=== PATIENT | male | born 1950 | race Caucasian/White ===

== ENCOUNTER 2018-04-02 09:42 | Emergency (ER) | payer MEDICARE, OTHER ==
[2018-04-02] MEDS ORDERED: Ondansetron HCl/PF 4 MG/2 ML Vial ONE (09:58)
[2018-04-02] MEDS ORDERED: Ketorolac Tromethamine 30 MG/ML VIAL ONE ×2 (09:58→12:06)
[2018-04-02 10:18] LABS: #Basophils 0.1 thou/uL (0.0-0.2); #Eosinphils 0.3 thou/uL (0.0-0.7); #Monocytes 0.6 thou/uL (0.11-0.59); #Neutrophils 5.3 thou/uL (1.40-6.50); %Basophils 0.7 % (0.0-1.0); %Eosinophils 2.7 % (0.0-10.0); %Lymphocytes 32.3 % (21.0-51.0); %Monocytes 6.9 % (0.0-10.0); %Neutrophils 57.3 % (42.0-75.0); Hemoglobin 15.2 g/dL (14.0-18.0); Mean Corpuscular HGB CONC 34.6 g/dL (32.0-36.0); Mean Corpuscular Hemoglobin 31.4 pg (27.0-31.0); Mean Corpuscular Volume 90.8 fL (78.0-98.0); Mean Platelet Volume 6.5 fL (7.4-10.4); Platelet Count 227 thou/uL (130-400); Red Blood Cell (RBC) Count 4.84 mill/uL (4.70-6.10); White Blood Cell (WBC) Count 9.3 thou/uL (4.8-10.8)
[2018-04-02 11:02] LABS: ALT (SGPT) 37 U/L (8-55); AST (SGOT) 32 U/L (5-34); Albumin 4.2 g/dL (3.4-4.8); Alkaline Phosphatase 39 U/L (40-150); Anion Gap 18 mmol/L (10-20); BUN (Urea Nitrogen) 20 mg/dL (8.4-25.7); Bilirubin, Total 0.4 mg/dL (0.2-1.2); Calc. Creatinine Clearance 0 mL/min (70-130); Calcium 9.2 mg/dL (7.8-10.44); Carbon Dioxide 20 mmol/L (23-31); Chloride 107 mmol/L (98-107); Estimated GFR-MDRD 60; Globulin 3.5 g/dL (2.4-3.5); Glucose 236 mg/dL (80-115); Potassium 4.9 mmol/L (3.5-5.1); Protein, Total 7.7 g/dL (5.8-8.1); Sodium 140 mmol/L (136-145)
--- NOTE | 2018-04-02 11:29 | CT ---
CT ABDOMEN AND PELVIS NONCONTRAST: Date: 04/02/18 HISTORY: Left flank pain. FINDINGS: Left renal collecting system and ureter are mildly distended to a level of a 0.5 cm calculus within t he proximal left ureter. Ureter is decompressed beyond this point. Right renal collecting system and ureter are decompressed. A tiny calcification, 0.1 cm, is present within a nondilated tono at the low perior pole right kidney. Lack of contrast limits evaluation for other abnormalities. Calcified granulomata are consistent with healed granulomatous disease. Diverticula rise from the colon without adjacent inflammation. There i s an arterial calcification. Fusiform dilatation of the lower abdominal aorta measures up to 4.5 cm. IMPRESSION: 1. Partial obstruction at a 0.5 cm proximal left ureteral calculus. 2. Tiny nonobstructing right renal calculus. 3. Fusiform lower abdominal aortic aneurysm, 4.5 cm. POS: [facility]
[2018-04-02 11:47] LABS: Bilirubin Negative (Negative); Blood, Urine Large (Negative); Clarity CLEAR (Clear); Glucose, Urine (Dipstick) 500 mg/dL (Negative); Leukocyte Negative (Negative); Nitrite Negative (Negative); Protein, Urine (Dipstick) Negative (Neg-Trace); Specific Gravity, Urine 1.021 (1.002-1.036); Urobilinogen 0.2 mg/dL (0.2-1.0); pH, Urine 5.5 (5.0-9.0)
[2018-04-02 11:49] LABS: Bacteria/HPF None Seen HPF (None Seen); Hyaline Casts/LPF 0-3 HYALINE CAST LPF (0-3 Hyaline); RBC/HPF 21-50 HPF (0-3); Squamous Epithelial None Seen HPF (0-3); WBC/HPF 0-3 HPF (0-3)
== END 2018-04-02 15:01 | disposition home or self-care (01) ==
LOC: ERS 09:42
DX: N20.1 Calculus of ureter (principal); I25.10 Atherosclerotic heart disease of native coronary artery without angina pectoris; I10 Essential (primary) hypertension; E11.9 Type 2 diabetes mellitus without complications; E78.5 Hyperlipidemia, unspecified; Z87.442 Personal history of urinary calculi; Z79.899 Other long term (current) drug therapy; Z79.84 Long term (current) use of oral hypoglycemic drugs
CPT/HCPCS: 74176; 80053; 81003; 81015; 85025; 96374; 96375; 96376; J1885; J2270; J2405

== ENCOUNTER 2018-09-11 07:13 | Outpatient (CLI) | payer MEDICARE ==
--- NOTE | 2018-09-11 09:19 | CT ---
CT ABDOMEN AND PELVIS WITHOUT CONTRAST CT ANGIOGRAM ABDOMEN AND PELVIS WITH CONTRAST: Date: 09/11/18 HISTORY: Follow-up aneurysm. COMPARISON: CT abdomen and pelvis without contrast dated 04/02/18. FINDINGS: The lung bases are clear. No pericardial effusion. On the noncontrast portion of the examination, there are a few calcified granulomas of the spleen. Th ere is no nephroureterolithiasis or hydroureteronephrosis. No secondary evidence of a recently passed stone. The appendix is visualized and is normal. There is diffuse fatty atrophy of the pancreas. No retroperitoneal adenopathy. Adrenal glands are unremarkable. No abnormal enhancing renal mass. No urothelial abnormality. There are two foci of ectasia of the aorta. The first is just below the renal arteries, for which the aorta measures up to 3.1 cm, for a craniocaudad length of 3.0 cm. There is a saccular aneurysm of th e infrarenal abdominal aorta just above the bifurcation measuring up to 4.4 cm for a craniocaudad graeme gth of 3.5 cm, which has partial peripheral posterior thrombosis. The iliac arteries are patent. No a neurysmal dilatation. Only mild atherosclerotic plaque. There is a nonenhancing 7.0 mm hypodensity anterior cortex intrapolar left kidney, likely a cyst. Evidence of old injury of the right iliac wing. IMPRESSION: Similar examination of the infrarenal abdominal aortic aneurysm. No dissection. POS: [facility]
== END 2018-09-11 07:14 | disposition home or self-care (01) ==
LOC: CT 07:13
PROVIDERS: ATTEND Thoracic Surgery (Cardiothoracic Vascular Surgery)
DX: I71.4 Abdominal aortic aneurysm, without rupture (principal)
CPT/HCPCS: 74174; 82565

== ENCOUNTER 2018-10-08 06:46 | Outpatient (CLI) | payer MEDICARE ==
[2018-10-08 12:52] LABS: Mean Corpuscular HGB CONC 33.9 g/dL (32.0-36.0); Mean Corpuscular Hemoglobin 30.5 pg (27.0-31.0); Platelet Count 255 thou/uL (130-400); RBC Distribution Width 11.9 % (11.5-14.5); Red Blood Cell (RBC) Count 4.92 mill/uL (4.70-6.10); White Blood Cell (WBC) Count 8.9 thou/uL (4.8-10.8)
[2018-10-08 13:12] LABS: Anion Gap 17 mmol/L (10-20); BUN (Urea Nitrogen) 34 mg/dL (8.4-25.7); Calc. Creatinine Clearance 0 mL/min (70-130); Calcium 9.9 mg/dL (7.8-10.44); Carbon Dioxide 21 mmol/L (23-31); Chloride 104 mmol/L (98-107); Estimated GFR-MDRD 54; Glucose 107 mg/dL (80-115); Potassium 5.1 mmol/L (3.5-5.1); Sodium 137 mmol/L (136-145)
--- NOTE | 2018-10-11 20:32 | EKG ---
Test Reason : Blood Pressure : / mmHG Vent. Rate : 076 BPM Atrial Rate : 076 BPM P-R Int : 184 ms QRS Dur : 096 ms QT Int : 374 ms P-R-T Axes : 034 224 047 degrees QTc Int : 420 ms Normal sinus rhythm Right superior axis deviation Right ventricular hypertrophy Inferior infarct , age undetermined Abnormal ECG When compared with ECG of 22-AUG-2012 10:30, MI interval has decreased Questionable change in QRS axis Inferior infarct is now Present QT has shortened Confirmed by Flash OLSEN ([id number]) on 10/11/2018 8:32:12 PM Referred By: CHRIS Confirmed By:Flash OLSEN
== END 2018-10-08 06:47 | disposition home or self-care (01) ==
LOC: LABBT 06:46
PROVIDERS: ATTEND Thoracic Surgery (Cardiothoracic Vascular Surgery)
DX: Z01.818 Encounter for other preprocedural examination (principal); I71.4 Abdominal aortic aneurysm, without rupture
CPT/HCPCS: 80048; 85027; 86850; 86900; 86901; 93005; 93010

== ENCOUNTER 2018-10-08 11:30 | Inpatient (IN) | payer MEDICARE ==
[2018-10-10] MEDS ORDERED: Levofloxacin 500 mg/D5W 100 ml Premix Bag ONE (06:27)
[2018-10-10] MEDS ORDERED: Clindamycin/D5W 900 mg/50 ml Premix Bag ONE (06:27)
[2018-10-10] MEDS ORDERED: Protamine Sulfate 250 MG/25 ML VIAL ONE (06:43)
[2018-10-10] MEDS ORDERED: Heparin 10,000 UNITS/1 ML VIAL ONE (06:43)
[2018-10-10] MEDS ORDERED: Protamine Sulfate 50 MG/5 ML VIAL ONE (06:43)
[2018-10-10] MEDS ORDERED: Fentanyl 250 MCG/5 ML VIAL ONE (06:55)
[2018-10-10] MEDS ORDERED: Midazolam HCl 2 mg/2 ml Vial ONE (07:06)
[2018-10-10] MEDS ORDERED: Promethazine HCl 25 MG/ML VIAL IM PRN (09:14)
[2018-10-10] MEDS ORDERED: Ondansetron HCl/PF 4 MG/2 ML Vial IVP PRN (09:14)
[2018-10-10] MEDS ORDERED: Promethazine HCl 25 MG/ML VIAL SLOW IVP PRN (09:14)
[2018-10-10] MEDS ORDERED: HYDROcodone/Acetaminophen 5/325 mg Tablet PO PRN ×2 (13:10)
[2018-10-10] MEDS ORDERED: Nitroglycerin 50 MG/250 ML BOT 250 ML IVPB PRN (13:10)
[2018-10-10] MEDS ORDERED: Acetaminophen 325 MG TAB PO PRN (13:10)
[2018-10-10] MEDS ORDERED: Dextrose 50% Abboject 50 ML SYRINGE SLOW IVP PRN (13:10)
[2018-10-10] MEDS ORDERED: Fentanyl 100 MCG/2 ML VIAL SLOW IVP PRN ×2 (13:10)
[2018-10-10] MEDS ORDERED: Insulin Regular 300 UNITS/3 ML VIAL SC PRN (13:10)
[2018-10-10] MEDS ORDERED: Dextrose 5% in Water 1,000 ML IV PRN (13:10)
[2018-10-10] MEDS ORDERED: Ondansetron PF 4 MG/2 ML Vial IVP PRN (13:10)
[2018-10-10] MEDS ORDERED: Phenylephrine 10 MG/NS 250 ML 250 ML IVPB PRN (13:10)
[2018-10-10] MEDS: Sodium Chloride 0.9% 1,000 ML IV SCH (13:30)
[2018-10-10 13:51] VITALS: BP 146/92
[2018-10-10] MEDS: Clindamycin/D5W 900 MG in Premix Bag 1 BAG IVPB SCH ×2 (14:36→21:19)
--- NOTE | 2018-10-10 14:54 | OP ---
DATE OF PROCEDURE: 10/10/2018 PREOPERATIVE DIAGNOSIS: Abdominal aortic aneurysm. POSTOPERATIVE DIAGNOSIS: Abdominal aortic aneurysm. PROCEDURES: 1. Endovascular repair of abdominal aortic aneurysm with a [place] 28 x 14.5 x 12 main body right, 12 x 12 left iliac extension, and 12 x 7 right iliac extension. 2. Percutaneous access with crossed ProGlide closure bilaterally. SURGEON : Tin Herrera MD ASST. SURGEON: Toi Pena MD ANESTHESIA: General endotracheal - Dr. Arun Echavarria. ESTIMATED BLOOD LOSS: Less than 50. CONTRAST: 48 mL. TOTAL FLUORO TIME: 10 minutes 33 seconds. DESCRIPTION OF PROCEDURE: After proper consent was obtained, the patient was brought to the operating room, placed in supine position on the operating room table. Appropriate central line was placed, and general endotracheal anesthesia was induced. Groins and abdomen were prepped and draped in usual sterile fashion. Using ultrasound guidance, bilateral percutaneous access was obtained and a 5- [place] sheath was placed. The crossed ProGlide's were then placed bilaterally and tagged for later closure. A 11-British sheath was then placed bilaterally. A Contra catheter was placed in the upper abdominal aorta. Aortogram was performed, localizing the renal arteries and the aortic bifurcation. A 28 x 14.5 x 12 main body right graft was selected. Lunderquist wires were placed bilaterally. The Contra catheter was exchanged into the left iliac system. Main body was positioned below the renal arteries at the level of the beginning of the neck. 10 mL of contrast was injected in the aorta to confirm positioning below the renal arteries. Main body graft was then deployed. The angled Berenstein catheter was used to cannulate the gate. Hand-injected arteriogram was performed through the left iliac sheaths. A 12 x 12 iliac extension was selected and deployed. Hand-injected arteriogram was performed through the right sheath. A 12 x 7 iliac extension was selected and deployed. Balloon angioplasty was then performed for the full length of the graft bilaterally. Followup angiogram was performed showing good graft apposition below the renal arteries with no endoleak. There was good apposition in the iliac arteries with no endoleak. The patient had been given 7500 mg of heparin at the beginning of the procedure. Sheaths were removed and a ProGlide was tied for hemostasis. 50 mg of protamine was given. The patient was awakened, extubated, and transferred to the recovery room in stable condition. Needle, sponge, and instrument counts were all reported as correct at the end of the procedure. Job ID: [id number] MTDD
[2018-10-11] MEDS: Sodium Chloride 0.9% 1,000 ML IV SCH (01:02)
[2018-10-11] MEDS: Clindamycin/D5W 900 MG in Premix Bag 1 BAG IVPB SCH ×2 (02:19→07:54)
[2018-10-11 03:41] LABS: Anion Gap 14 mmol/L (10-20); BUN (Urea Nitrogen) 19 mg/dL (8.4-25.7); Calc. Creatinine Clearance 0 mL/min (70-130); Calcium 9.1 mg/dL (7.8-10.44); Carbon Dioxide 24 mmol/L (23-31); Chloride 105 mmol/L (98-107); Estimated GFR-MDRD 61; Glucose 166 mg/dL (80-115); Potassium 4.1 mmol/L (3.5-5.1); Sodium 139 mmol/L (136-145)
[2018-10-11 03:45] LABS: #Basophils 0.1 thou/uL (0.0-0.2); #Eosinphils 0.2 thou/uL (0.0-0.7); #Lymphocytes 1.5 thou/uL (1.20-3.40); #Monocytes 0.7 thou/uL (0.11-0.59); #Neutrophils 5.6 thou/uL (1.40-6.50); %Basophils 0.6 % (0.0-1.0); %Eosinophils 2.5 % (0.0-10.0); %Lymphocytes 18.7 % (21.0-51.0); %Monocytes 8.8 % (0.0-10.0); %Neutrophils 69.4 % (42.0-75.0); Hemoglobin 13.7 g/dL (14.0-18.0); Mean Corpuscular HGB CONC 34.5 g/dL (32.0-36.0); Mean Corpuscular Hemoglobin 31.6 pg (27.0-31.0); Mean Corpuscular Volume 91.8 fL (78.0-98.0); Mean Platelet Volume 6.9 fL (7.4-10.4); Platelet Count 200 thou/uL (130-400); RBC Distribution Width 11.9 % (11.5-14.5); Red Blood Cell (RBC) Count 4.33 mill/uL (4.70-6.10)
--- NOTE | 2018-10-11 06:12 | DIS ---
DATE OF ADMISSION: 10/10/2018 DATE OF DISCHARGE: 10/11/2018 DIAGNOSIS: Abdominal aortic aneurysm. PROCEDURE: Elective endovascular abdominal aortic aneurysm repair. DESCRIPTION OF HOSPITAL STAY: Mr. Bone is a 68-year-old who was admitted for elective repair. He underwent endovascular repair with a [place] device. Postoperatively, he has done well. He has palpable pedal pulses. His groin percutaneous closure sites look good with no hematomas. He is being discharged home to follow up with me in two weeks. DISCHARGE MEDICATIONS: Unchanged. Job ID: [id number]
[2018-10-11 08:14] VITALS: TEMP 97.8
[2018-10-11] MEDS ORDERED: Aspirin 325 mg Enteric Coated Tablet PO SCH (09:00)
[2018-10-11] MEDS ORDERED: Non-Formulary Item 1 EACH (Ranitidine Hcl [Ranitidine Hcl] 150 MG) PO SCH (09:00)
[2018-10-11] MEDS ORDERED: Famotidine 20 MG TAB PO SCH (09:00)
[2018-10-11] MEDS ORDERED: Atorvastatin Calcium 20 MG TAB PO SCH (09:00)
== END 2018-10-11 09:23 | disposition home or self-care (01) | DRG 269 ==
LOC: SURG A 10-10 05:51 → CCU 10-10 13:24
PROVIDERS: ADMIT Thoracic Surgery (Cardiothoracic Vascular Surgery); ATTEND Thoracic Surgery (Cardiothoracic Vascular Surgery)
PROC: 04V03DZ Restriction of Abdominal Aorta with Intraluminal Device, Percutaneous Approach (ICD-10-PCS; principal; 2018-10-10)
DX: I71.4 Abdominal aortic aneurysm, without rupture (principal)
CPT/HCPCS: 36415; 36416; 76000; 80048; 85025; 85027; 86850; 86900; 86901; 93005; 93010; C1760; C1769; J1642; J1644; J1956; J2250; J2720; J3010; J3490

== ENCOUNTER 2018-11-18 11:53 | Outpatient (CLI) | payer MEDICARE ==
[~2018-11-18 11:53] MED LIST: Iopamidol 370 76% 100 ML VIAL ONE
--- NOTE | 2018-11-18 15:30 | CT ---
CTA ABDOMEN WITH IV CONTRAST AND 3D REFORMATTED IMAGING: CTA PELVIS: COMPARISON: 09/11/2018 FINDINGS: ABDOMEN: The lung bases are clear. There is mild fatty infiltration of the liver with focal fatty sparing near the gallbladder fossa. There is some fatty infiltration of the pancreas, which is stable. The adrenal glands and spleen ella ear unchanged, with small granuloma within the spleen. Small exophytic cysts along the anterior margin of the left kidney are stable. No free fluid or enlarged lymph nodes are evident. PELVIS: There is a mild amount of retained stool within the colon. There are scattered diverticula involving the colon without evidence of active diverticulitis. There is a normal appendix in the rig ht lower quadrant. The small bowel is normal appearing. Mild spondylosis of the lumbar spine is sta ble. There is stable healed deformity involving the right iliac wing. VASCULATURE: There has been interval placement of an aortobiiliac endograft stent, bypassing the lower infrarenal abdominal aortic aneurysm. The excluded aneurysmal sac measures approximately 4.3 cm, which is stabl e to the prior exam. There is no overt evidence to suggest the presence of an Endo leak. There is c ontrast opacification seen within the lumen of both iliac graft legs. The visualized common iliac an d external iliac arteries appear widely patent. There is some mild atherosclerotic irregularity seen at the level of the right common femoral artery. The femoral bifurcations are widely patent. Inter nal iliac arteries are normally opacified. The aneurysmal dilatation seen at the level of the renal arteries measures 3.4 cm, which is stable to the prior examination. The duplicated right renal arter ies are patent. The single left renal artery is patent. The SMA and celiac arteries are patent. Th e MELI originates off the excluded aneurysmal sac and is seen to opacify in a retrograde fashion. IMPRESSION: 1. Interval placement of an aortobiiliac endograft stent with no evidence of complication. The excl uded aneurysmal sac is stable in size, measuring 4.3 cm, without evidence of Endo leak. The aortobii liac endo graft stent components opacify without evidence of stenosis or occlusion. 2. Mild narrowing at the right common femoral artery due to atherosclerotic calcification and plaque is new on image 149 of series 2. Continued followup is recommended. 3. The aneurysm of the abdominal aorta, at the level of the renal arteries, is stable, measuring 3.4 cm. 4. Fatty liver. 5. Findings of prior granulomatous disease. 6. Scattered colonic diverticula. 7. Mild amount of retained stool within the colon. POS: [facility]
== END 2018-11-18 11:54 | disposition home or self-care (01) ==
LOC: CT 11:53
PROVIDERS: ATTEND Thoracic Surgery (Cardiothoracic Vascular Surgery)
DX: I71.4 Abdominal aortic aneurysm, without rupture (principal); K76.0 Fatty (change of) liver, not elsewhere classified; K57.30 Diverticulosis of large intestine without perforation or abscess without bleeding; K59.00 Constipation, unspecified; I70.8 Atherosclerosis of other arteries
CPT/HCPCS: 74174; 82565; Q9967

== ENCOUNTER 2018-12-02 20:51 | Emergency (ER) | payer MEDICARE ==
[2018-12-02 22:16] LABS: #Eosinphils 0.1 thou/uL (0.0-0.7); #Lymphocytes 1.4 thou/uL (1.20-3.40); #Monocytes 0.5 thou/uL (0.11-0.59); #Neutrophils 8.5 thou/uL (1.40-6.50); %Basophils 0.2 % (0.0-1.0); %Eosinophils 0.6 % (0.0-10.0); %Lymphocytes 13.1 % (21.0-51.0); %Monocytes 4.8 % (0.0-10.0); %Neutrophils 81.3 % (42.0-75.0); Hemoglobin 14.3 g/dL (14.0-18.0); Mean Corpuscular HGB CONC 33.9 g/dL (32.0-36.0); Mean Corpuscular Hemoglobin 30.5 pg (27.0-31.0); Platelet Count 235 thou/uL (130-400); Red Blood Cell (RBC) Count 4.68 mill/uL (4.70-6.10); White Blood Cell (WBC) Count 10.5 thou/uL (4.8-10.8)
[2018-12-02 22:32] LABS: Bilirubin Negative (Negative); Blood, Urine Large (Negative); Clarity CLEAR (Clear); Glucose, Urine (Dipstick) 500 mg/dL (Negative); Leukocyte Negative (Negative); Nitrite Negative (Negative); Protein, Urine (Dipstick) Negative (Neg-Trace); Specific Gravity, Urine 1.013 (1.002-1.036); Urobilinogen 0.2 mg/dL (0.2-1.0)
[2018-12-02 22:34] LABS: Bacteria/HPF None Seen HPF (None Seen); Hyaline Casts/LPF 0-3 HYALINE CAST LPF (0-3 Hyaline); RBC/HPF GREATER THAN 50-TNTC HPF (0-3); Squamous Epithelial None Seen HPF (0-3); WBC/HPF None Seen HPF (0-3)
[2018-12-02 22:36] LABS: ALT (SGPT) 27 U/L (8-55); AST (SGOT) 21 U/L (5-34); Albumin 4.3 g/dL (3.4-4.8); Alkaline Phosphatase 54 U/L (40-150); Anion Gap 17 mmol/L (10-20); BUN (Urea Nitrogen) 24 mg/dL (8.4-25.7); Bilirubin, Total 0.3 mg/dL (0.2-1.2); Calc. Creatinine Clearance 0 mL/min (70-130); Calcium 9.6 mg/dL (7.8-10.44); Carbon Dioxide 23 mmol/L (23-31); Chloride 106 mmol/L (98-107); Estimated GFR-MDRD 51; Globulin 3.4 g/dL (2.4-3.5); Glucose 218 mg/dL (80-115); Potassium 4.1 mmol/L (3.5-5.1); Protein, Total 7.7 g/dL (5.8-8.1); Sodium 142 mmol/L (136-145)
--- NOTE | 2018-12-02 23:56 | CT ---
NONCONTRAST CT ABDOMEN AND PELVIS: Date: 12-02-18 History: Right flank pain that started at 1700 hours. Difficulty urinating. Comparison: 04-02-18 FINDINGS: There is mild right hydronephrosis and hydroureter with asymmetric greater degree of perinephric stra nding on the right. There is an approximately 2 mm calculus which appears to be just distal to the ri ght UVJ and within the urinary bladder. Findings are likely related to passage of a ureteral calculus . No additional renal or ureteral calculi are seen bilaterally. There is a stable exophytic slightly increased density lesion anterior aspect midportion left kidney. Calcified granuloma is again present in the spleen. The liver demonstrates diminished attenuation, likely attributable to fatty infiltration with small a rafiq of fatty sparring adjacent to the gallbladder. The lung bases are clear. The pancreas is fatty replaced. The bilateral adrenal glands demonstrate a grossly normal nonenhanced CT appearance. Aortic biliary stent graft remains in place related to repair of abdominal aortic aneurysm. Aneurysm sac diameter measures approximately 4.4 cm in greatest AP dimensions which is overall similar to stud y on 11-18-18. There is colonic diverticulosis again seen. The appendix is normal in caliber. No other interval change. IMPRESSION: 1. Findings suggestive of recent passage of a right ureteral calculus with a punctate calculus presen t within the base of the urinary bladder. There is mild right perinephric stranding. No additional re nal or ureteral calculi are seen. 2. Stable increased density lesion superior pole left kidney. 3. Fatty infiltration of the liver. 4. Fatty replacement of the pancreas. 5. Colonic diverticulosis. 6. Aortobiiliac stent graft noted in place with aneurysm sac diameter similar to prior study from 10-26. POS: [facility]
[2018-12-03] MEDS ORDERED: Ondansetron PF 4 MG/2 ML Vial ONE (01:17)
[2018-12-03] MEDS ORDERED: Ketorolac Tromethamine 30 MG/ML VIAL ONE (01:17)
[2018-12-03] MEDS ORDERED: Morphine 4 MG/ML VIAL ONE (01:18)
== END 2018-12-03 01:24 | disposition home or self-care (01) ==
LOC: ERS 20:51
DX: N13.2 Hydronephrosis with renal and ureteral calculous obstruction (principal); I25.10 Atherosclerotic heart disease of native coronary artery without angina pectoris; E11.9 Type 2 diabetes mellitus without complications; E78.5 Hyperlipidemia, unspecified; I10 Essential (primary) hypertension; Z87.442 Personal history of urinary calculi; Z79.84 Long term (current) use of oral hypoglycemic drugs; Z79.899 Other long term (current) drug therapy
CPT/HCPCS: 36415; 74176; 80053; 81003; 81015; 85025; 96361; 96374; 96375; J1885; J2270; J2405

== ENCOUNTER 2020-07-05 11:10 | Outpatient (CLI) | payer MEDICARE ==
[2020-07-05] MEDS ORDERED: Iopamidol 370 76% 100 ML VIAL ONE (13:46)
--- NOTE | 2020-07-05 13:51 | CT ---
CTA ABDOMEN AND PELVIS WITH AND WITHOUT IV CONTRAST: INDICATION: Followup abdominal aortic aneurysm. COMPARISON: Comparison is made to CTA abdomen and pelvis 11/18/2018. FINDINGS: Review of the abdominal aorta reveals a sacular aneurysm involving the mid abdominal aorta at the lev el of the renal arteries. This continues to measure 3.4 cm AP dimension and does not appear signific antly changed in size. There are 2 right renal arteries without evidence of significant right renal artery stenosis. There is a single left renal artery with mild atherosclerotic plaque at its origin; however, no evidence of hemodynamically significant stenosis of the left renal artery. Celiac artery and superior mesenteric artery show no significant stenosis. There is atherosclerotic calcification involving the abdominal aorta without interval change. There is an aortic stent graft in the distal abdominal aorta. The iliac limbs extend to the iliac bi furcation bilaterally. This skin graft is patent. There is no evidence of endoleak. The [place] excluded abdominal aortic aneurysm distally is filled with thrombus. It has slightly decr eased in size measuring approximately 4.0 cm today. It measured 4.4 cm previously. Atherosclerotic calcification involving the common femoral arteries is stable in appearance. The fem oral profunda and proximal superficial femoral arteries are imaged and appear unremarkable and unchan ged. Lung bases clear. The visualized liver, spleen, and pancreas are unremarkable. Pancreas shows diffu se fatty replacement. Adrenal glands and kidneys unremarkable and stable. There is a new calcificat ion in the mid pole collecting structures of the right kidney which measures approximately 1.0 cm. U reters are normal in appearance. The urinary bladder is unremarkable. Osseous structures unremarkab le with degenerative spine changes. IMPRESSION: 1. Stable abdominal aortic aneurysm and stable endograft without evidence of endoleak. 2. There is a new calcification in the mid pole collecting structures of the right kidney. 3. No acute process or other interval change. POS: [facility]
== END 2020-07-05 11:11 | disposition home or self-care (01) ==
LOC: CT 11:10
PROVIDERS: ATTEND Thoracic Surgery (Cardiothoracic Vascular Surgery)
DX: I71.4 Abdominal aortic aneurysm, without rupture (principal); N28.89 Other specified disorders of kidney and ureter
CPT/HCPCS: 74174; 82565; Q9967

== ENCOUNTER 2021-09-25 19:27 | Observation (INO) | payer MEDICARE ==
[2021-09-25 20:50] LABS: #Lymphocytes 1.1 thou/uL (1.20-3.40); #Monocytes 0.5 thou/uL (0.11-0.59); #Neutrophils 2.1 thou/uL (1.40-6.50); %Basophils 0.2 % (0.0-1.0); %Eosinophils 0.5 % (0.0-10.0); %Lymphocytes 30.2 % (21.0-51.0); %Monocytes 12.9 % (0.0-10.0); %Neutrophils 56.2 % (42.0-75.0); Hemoglobin 16.1 g/dL (14.0-18.0); Mean Corpuscular HGB CONC 35.2 g/dL (32.0-36.0); Mean Corpuscular Hemoglobin 32.4 pg (27.0-31.0); Mean Corpuscular Volume 92.2 fL (78.0-98.0); Platelet Count 161 thou/uL (130-400); RBC Distribution Width 12.2 % (11.5-14.5); Red Blood Cell (RBC) Count 4.97 mill/uL (4.70-6.10); White Blood Cell (WBC) Count 3.8 thou/uL (4.8-10.8)
[2021-09-25 21:12] LABS: ALT (SGPT) 32 U/L (8-55); AST (SGOT) 20 U/L (5-34); Albumin 3.7 g/dL (3.4-4.8); Alkaline Phosphatase 51 U/L (40-110); Anion Gap 16 mmol/L (10-20); BUN (Urea Nitrogen) 23 mg/dL (8.4-25.7); Bilirubin, Total 0.5 mg/dL (0.2-1.2); CK (CPK) 18 U/L (30-200); Calc. Creatinine Clearance 0 mL/min (70-130); Carbon Dioxide 22 mmol/L (23-31); Chloride 99 mmol/L (98-107); Glucose 234 mg/dL (80-115); Lipase 14 U/L (8-78); Potassium 4.2 mmol/L (3.5-5.1); Protein, Total 6.7 g/dL (5.8-8.1); Sodium 133 mmol/L (136-145)
[2021-09-25 21:40] LABS: Bacteria/HPF None Seen HPF (None Seen); Bilirubin Negative (Negative); Blood, Urine Negative (Negative); Clarity Clear (Clear); Glucose, Urine (Dipstick) Greater than 1000 mg/dL (Negative); Ketone, Urine 20 mg/dL (Negative); Leukocyte Negative Leu/uL (Negative); Nitrite Negative (Negative); Protein, Urine (Dipstick) 30 mg/dL (Neg-Trace); RBC/HPF 0-3 HPF (0-3); Specific Gravity, Urine 1.032 (1.002-1.036); Squamous Epithelial None Seen HPF (0-3); Urobilinogen Normal mg/dL (Less than 2); WBC/HPF 0-3 HPF (0-3); pH, Urine 5.5 (5.0-9.0)
[2021-09-25] MEDS ORDERED: Mag-Al 1200 mg/1200 mg/30 ML UDCUP ONE (21:40)
[2021-09-25] MEDS ORDERED: Ondansetron ODT 4 MG TAB ONE (21:40)
[2021-09-25] MEDS ORDERED: Lidocaine Viscous Sol 2% 15 ml UD Cup ONE (21:40)
[2021-09-25 23:43] LABS: SARS-CoV-2 NAA Rapid Test DETECTED (NotDetected)
[2021-09-26 00:16] LABS: Troponin I Less than 0.010 ng/mL (< 0.028)
[2021-09-26] MEDS ORDERED: Dextrose 5% in Water 1,000 ML IV PRN (01:28)
[2021-09-26] MEDS ORDERED: HumaLOG 300 UNITS/3 ML VIAL SC PRN ×2 (01:28)
[2021-09-26] MEDS ORDERED: Dextrose 50% Abboject 50 ML SYRINGE SLOW IVP PRN (01:28)
[2021-09-26] MEDS ORDERED: Sodium Chloride 0.9% 1,000 ML IV SCH (01:30)
[2021-09-26] MEDS ORDERED: Ondansetron ODT 4 MG TAB PO PRN (01:30)
[2021-09-26] MEDS ORDERED: Ondansetron PF 4 MG/2 ML Vial IVP PRN (01:30)
[2021-09-26] MEDS ORDERED: Senokot S 8.6-50 MG TAB PO PRN (01:30)
[2021-09-26] MEDS ORDERED: Acetaminophen 325 MG TAB PO PRN (01:30)
[2021-09-26] MEDS ORDERED: guaiFENesin 200 MG TAB PO PRN (02:23)
[2021-09-26 02:56] LABS: #Lymphocytes 1.2 thou/uL (1.20-3.40); #Monocytes 0.3 thou/uL (0.11-0.59); #Neutrophils 1.4 thou/uL (1.40-6.50); %Basophils 0.6 % (0.0-1.0); %Eosinophils 0.8 % (0.0-10.0); %Lymphocytes 41.1 % (21.0-51.0); %Monocytes 9.7 % (0.0-10.0); %Neutrophils 47.9 % (42.0-75.0); Hemoglobin 14.9 g/dL (14.0-18.0); Mean Corpuscular HGB CONC 34.9 g/dL (32.0-36.0); Mean Corpuscular Hemoglobin 32.2 pg (27.0-31.0); Mean Corpuscular Volume 92.2 fL (78.0-98.0); Platelet Count 149 thou/uL (130-400); RBC Distribution Width 12.2 % (11.5-14.5); Red Blood Cell (RBC) Count 4.63 mill/uL (4.70-6.10); White Blood Cell (WBC) Count 2.9 thou/uL (4.8-10.8)
[2021-09-26 03:18] LABS: Troponin I 0.015 ng/mL (< 0.028)
[2021-09-26 03:20] LABS: Anion Gap 15 mmol/L (10-20); BUN (Urea Nitrogen) 23 mg/dL (8.4-25.7); CRP (Inflammatory) 4.85 mg/dL (= or < 0.5); Calc. Creatinine Clearance 0 mL/min (70-130); Calcium 8.7 mg/dL (7.8-10.44); Carbon Dioxide 23 mmol/L (23-31); Chloride 101 mmol/L (98-107); Glucose 177 mg/dL (80-115); Magnesium 1.6 mg/dL (1.6-2.6); Potassium 3.9 mmol/L (3.5-5.1); Sodium 135 mmol/L (136-145)
[2021-09-26] MEDS ORDERED: Ascorbic Acid 500 mg Chewable Tablet ONE (08:43)
[2021-09-26] MEDS ORDERED: Zinc Sulfate 220 MG CAP ONE (08:43)
[2021-09-26] MEDS ORDERED: Zinc Sulfate 220 MG CAP PO SCH (09:00)
[2021-09-26] MEDS ORDERED: Cholecalciferol (Vitamin D3) 400 UNITS TAB PO SCH (09:00)
[2021-09-26] MEDS ORDERED: Ascorbic Acid 500 mg Chewable Tablet PO SCH (09:00)
== END 2021-09-26 15:17 | disposition home or self-care (01) ==
LOC: ERS 19:27 → ERHOLD 22:40
PROVIDERS: ADMIT Student in an Organized Health Care Education/Training Program; ATTEND Internal Medicine
DX: E87.2 Acidosis (principal); E87.1 Hypo-osmolality and hyponatremia; U07.1 COVID-19; I10 Essential (primary) hypertension; E11.9 Type 2 diabetes mellitus without complications; I25.10 Atherosclerotic heart disease of native coronary artery without angina pectoris; I25.2 Old myocardial infarction; E78.00 Pure hypercholesterolemia, unspecified; Z79.82 Long term (current) use of aspirin; Z79.84 Long term (current) use of oral hypoglycemic drugs; Z79.899 Other long term (current) drug therapy; Z88.0 Allergy status to penicillin; Z88.5 Allergy status to narcotic agent; Z91.030 Bee allergy status; Z95.1 Presence of aortocoronary bypass graft; Z87.891 Personal history of nicotine dependence
CPT/HCPCS: 0240U; 70450; 71045; 80048; 80053; 82550; 82728; 83036; 83605; 83690; 83735; 84484 ×3; 85025 ×2; 86140; 87040; 87086; 93005; 97116; 97139 ×4; 97535; 99285; G0378 ×2; 36415; 81003; 81015; J7050; Q0162

== ENCOUNTER 2021-11-07 12:52 | Outpatient (CLI) | payer MEDICARE ==
[2021-11-07 14:39] LABS: Hemoglobin 13.5 g/dL (13.5-17.5); Mean Corpuscular HGB CONC 32.5 g/dL (32.0-36.0); Mean Corpuscular Volume 92.2 fl (81.2-95.1); Platelet Count 313 10x3/uL (150-450); RBC Distribution Width 13.2 % (11.5-14.5); White Blood Cell (WBC) Count 7.7 10x3/uL (3.5-10.5)
[2021-11-07 14:46] LABS: Bilirubin Neg (Negative); Blood, Urine Negative (Negative); Clarity Clear (Clear); Glucose, Urine (Dipstick) 100 mg/dL (Negative); Ketone, Urine Negative (Negative); Leukocyte Negative (Negative); Nitrite Negative (Negative); Protein, Urine (Dipstick) Negative (Neg-Trace); Specific Gravity, Urine 1.025 (1.002-1.036); Urobilinogen Normal mg/dL (Less than 2)
[2021-11-07 15:08] LABS: RBC/HPF 0-3 HPF (0-3); Squamous Epithelial 0-3 HPF (0-3)
[2021-11-07 15:09] LABS: Bacteria/HPF 1+ HPF (None Seen); Calcium Oxalate Crystals 1+ HPF (None Seen)
[2021-11-07 15:11] LABS: Anion Gap 15 mmol/L (10-20); BUN (Urea Nitrogen) 26 mg/dL (8.4-25.7); Calc. Creatinine Clearance 0 mL/min (70-130); Calcium 9.1 mg/dL (7.8-10.44); Carbon Dioxide 26 mmol/L (23-31); Chloride 105 mmol/L (98-107); Glucose 163 mg/dL (80-115); Potassium 4.5 mmol/L (3.5-5.1); Sodium 141 mmol/L (136-145)
[2021-11-07 15:11] LABS: Mucous/LPF Rare LPF (<2+)
== END 2021-11-07 12:53 | disposition home or self-care (01) ==
LOC: LABBT 12:52
PROVIDERS: ATTEND Urology
DX: Z01.818 Encounter for other preprocedural examination (principal); N20.1 Calculus of ureter
CPT/HCPCS: 80048; 81001; 85027; 87086; 93005; 93010